=== PATIENT | male | born 1960 | race Caucasian/White ===

== ENCOUNTER 2017-05-23 12:59 | Inpatient (IN) | payer SELFPAY ==
[~2017-05-23] VITALS: Ht 188 cm; Wt 80.0 kg
[~2017-05-23 12:59] MED LIST: Z.0.NO CURRENT MEDS
[2017-05-23 13:09] VITALS: BP 172/81; PULSE 90; RESP 18; TEMP 98.3; O2SAT 97
[2017-05-23] MEDS ORDERED: SODIUM CHLOR 0.9% 1000 ML INJ 1,000 ML IV ONE ×2 (13:34)
[2017-05-23] MEDS ORDERED: VANCOMYCIN INJ 1,000 MG in SODIUM CHLOR 0.9% 250 ML INJ 250 ML IV STA (13:34)
[2017-05-23] MEDS ORDERED: SODIUM CHLOR 0.9% 1000 ML INJ 400 ML IV ONE (13:34)
[2017-05-23] MEDS ORDERED: PIPERACIL-TAZO 4.5 GM PREMIX 100 ML IV STA (13:34)
[2017-05-23] MEDS ORDERED: HYDROmorphone HCL PF 1 MG/ML VIAL IV ONE (13:45)
[2017-05-23] MEDS ORDERED: ONDANSETRON HCL 4 MG/2 ML VIAL IV ONE (13:45)
[2017-05-23] MEDS ORDERED: LIDOCAINE 2%/EPINEPHrine 1:100,000 30ML MDV INFIL ONE (14:00)
[2017-05-23] MEDS ORDERED: LIDOCAINE 2%/EPINEPHrine 1:100,000 50ML MDV ONE (14:10)
--- NOTE | 2017-05-23 14:28 | PD ---
HPI . Pain and swelling of the left elbow Chief Complaint: Skin Problem Time Seen by Provider: 13:33 Travel History International Travel<30 days: No Contact w/Intl Traveler<30days: No Traveled to known affect area: No History of Present Illness HPI This patient presents with a chief complaint of pain and swelling of his left elbow. Onset was a week ago. Symptoms are progressively worsening. He is now having difficulty moving his elbow secondary to the pain. He has had a subjective fever. Patient states that he had a "spider bite" a month ago and was treated at an outside hospital with antibiotics. He believes that his symptoms today are related to that "spider bite." PFSH Past Medical History Tetanus Vaccination: > 5 Years Past Surgical History Eye Surgery: Yes (L EYE REINSERTED) Social History Alcohol Use: Yes (6 BEERS DAILY) Tobacco Use: Yes (1PPD) Substance Use: No Allergies-Medications (Allergen,Severity, Reaction): Coded Allergies: penicillin G (Unverified Allergy, Unknown, UNKNOWN REACTION, 05/23/17) Reported Meds & Prescriptions Reported Meds & Active Scripts Active No Active Prescriptions or Reported Medications Review of Systems Except as stated in HPI: all other systems reviewed are Neg General / Constitutional: Positive: Fever, Chills Musculoskeletal: Positive: Limited ROM, Edema Skin: Positive Change in Pigmentation Physical Exam Narrative GENERAL: This is a thin, disheveled-appearing man who does not appear to be in any acute distress. SKIN: warm/dry. Marked edema and erythema of the olecranon bursa. There is some associated fluctuance. HEAD: Normocephalic. EYES: Pupils equal and round. No scleral icterus. No injection or drainage. ENT: No nasal bleeding or discharge. Mucous membranes pink and moist. NECK: Trachea midline. Full range of motion without pain.. CARDIOVASCULAR: Regular rate and rhythm. RESPIRATORY: No accessory muscle use. Clear to auscultation. Breath sounds equal bilaterally. MUSCULOSKELETAL: No obvious deformities. Diminished range of motion of the left elbow due to the swelling of the olecranon bursa. NEUROLOGICAL: Awake and alert. No obvious cranial nerve deficits. Motor grossly within normal limits. Normal speech. PSYCHIATRIC: Appropriate mood and affect; insight and judgment normal. Data Data Last Documented VS Vital Signs Date Time Temp Pulse Resp B/P (MAP) Pulse Ox O2 Delivery O2 Flow Rate FiO2 05/23/17 13:09 98.3 90 18 172/81 (111) 97 Orders Orders Basic Metabolic Panel (Bmp) (05/23/17 13:34) Complete Blood Count With Diff (05/23/17 13:34) Blood Culture (05/23/17 13:34) Wound Culture And Gram Stain (05/23/17 13:34) Iv Access Insert/Monitor (05/23/17 13:34) Lactic Acid Sepsis Protocol (05/23/17 13:34) Hydromorphone Pf Inj (Dilaudid Pf Inj) (05/23/17 13:45) Ondansetron Inj (Zofran Inj) (05/23/17 13:45) Piperacil-Tazo 4.5 Gm Premix (Zosyn 4.5 (05/23/17 13:34) Vancomycin Inj (Vancomycin Inj) (05/23/17 13:34) Sodium Chlor 0.9% 1000 Ml Inj (Ns 1000 M (05/23/17 13:34) Sodium Chlor 0.9% 1000 Ml Inj (Ns 1000 M (05/23/17 13:34) Sodium Chlor 0.9% 1000 Ml Inj (Ns 1000 M (05/23/17 13:34) Lidocai-Epi 2%-1:100,000 Inj (Xylocaine- (05/23/17 14:00) Lidocai-Epi 2%-1:100,000 Inj (Xylocaine- (05/23/17 14:10) Admit To Inpatient (05/23/17 ) Code Status (05/23/17 15:52) Vital Signs (Adult) Q4H (05/23/17 15:52) Activity Oob Ad Patricia (05/23/17 15:52) Intake + Output WILFRID.QSHIFT (05/23/17 15:52) Notify Dr: Other (05/23/17 15:52) Diet Regular Basic (05/23/17 Dinner) Sodium Chlor 0.9% 1000 Ml Inj (Ns 1000 M (05/23/17 15:52) Sodium Chloride 0.9% Flush (Ns Flush) (05/23/17 16:00) Sodium Chloride 0.9% Flush (Ns Flush) (05/23/17 21:00) Acetaminophen (Tylenol) (05/23/17 16:00) Ondansetron Inj (Zofran Inj) (05/23/17 16:00) Basic Metabolic Panel (Bmp) (05/24/17 06:00) Complete Blood Count With Diff (05/24/17 06:00) Urinalysis - C+S If Indicated (05/23/17 15:52) Enoxaparin Inj (Lovenox Inj) (05/23/17 16:00) Naloxone Inj (Narcan Inj) (05/23/17 16:00) Docusate Sodium-Senna (Rachel-Colace) (05/23/17 21:00) Magnesium Hydroxide Liq (Milk Of Magnesi (05/23/17 16:00) Sennosides (Senokot) (05/23/17 16:00) Bisacodyl Supp (Dulcolax Supp) (05/23/17 16:00) Lactulose Liq (Lactulose Liq) (05/23/17 16:00) Inpatient Certification (05/23/17 ) Vancomycin Consult Pharmacy (Vancomycin (05/23/17 16:00) Piperacil-Tazo 3.375 Gm Premix (Zosyn 3. (05/23/17 16:00) Admit Order (Ed Use Only) (05/23/17 15:53) Labs Laboratory Tests Test 05/23/17 13:45 White Blood Count 15.3 TH/MM3 Red Blood Count 3.84 MIL/MM3 Hemoglobin 12.1 GM/DL Hematocrit 35.9 % Mean Corpuscular Volume 93.6 FL Mean Corpuscular Hemoglobin 31.6 PG Mean Corpuscular Hemoglobin Concent 33.7 % Red Cell Distribution Width 14.4 % Platelet Count 494 TH/MM3 Mean Platelet Volume 7.9 FL Neutrophils (%) (Auto) 76.5 % Lymphocytes (%) (Auto) 15.4 % Monocytes (%) (Auto) 6.7 % Eosinophils (%) (Auto) 0.6 % Basophils (%) (Auto) 0.8 % Neutrophils # (Auto) 11.7 TH/MM3 Lymphocytes # (Auto) 2.4 TH/MM3 Monocytes # (Auto) 1.0 TH/MM3 Eosinophils # (Auto) 0.1 TH/MM3 Basophils # (Auto) 0.1 TH/MM3 CBC Comment DIFF FINAL Differential Comment Blood Urea Nitrogen 6 MG/DL Creatinine 0.61 MG/DL Random Glucose 86 MG/DL Calcium Level 8.5 MG/DL Sodium Level 134 MEQ/L Potassium Level 4.7 MEQ/L Chloride Level 102 MEQ/L Carbon Dioxide Level 20.4 MEQ/L Anion Gap 12 MEQ/L Estimat Glomerular Filtration Rate 136 ML/MIN Lactic Acid Level 1.2 mmol/L MDM Medical Decision Making Medical Screen Exam Complete: Yes Emergency Medical Condition: Yes Differential Diagnosis My differential diagnosis includes but is not limited to localized wound infection, cellulitis, abscess Narrative Course This patient presents with redness, warmth, swelling and tenderness of the left elbow. CBC & BMP Diagram 05/23/17 13:45 Calcium Level 8.5 Lactic acid level is normal. Procedures Procedure Narrative NEEDLE ASPIRATION OF BURSA: The left elbow was prepped with an alcohol swab. An 18-gauge needle and 10 cc syringe within use to aspirate the bursa or the purpose of culture. 10 cc of thick, purulent material was aspirated. INCISION AND DRAINAGE OF ABSCESS: The area was prepped and was sterilely draped. A subcutaneous wheal of 2 % Xylocaine with epi with a total number for mL was used to anesthetize the area properly. A number 11 scalpel was used to make a 1-cm incision across the area of the abscess. The abscess was drained. Cultures were obtained. Half inch iodoform packing was placed in the wound. Sterile dressing applied. Diagnosis Primary Impression: Septic olecranon bursitis of left elbow Admitting Information Admitting Physician Requests: Admit Scripts No Active Prescriptions or Reported Meds Condition: Stable Marianne Agee MD May 23, 2017 14:28
[2017-05-23 14:29] LABS: AUTOMATED NEUTROPHIL # 11.7 TH/MM3 (1.8-7.7); BASOPHIL # 0.1 TH/MM3 (0-0.2); BASOPHIL % 0.8 % (0.0-2.0); EOSINOPHIL # 0.1 TH/MM3 (0-0.4); EOSINOPHIL % 0.6 % (0.0-4.0); HEMATOCRIT 35.9 % (39.0-51.0); HEMO FLAGS DIFF FINAL; LYMPH % 15.4 % (9.0-44.0); LYMPHOCYTE # 2.4 TH/MM3 (1.0-4.8); MEAN CELL VOLUME 93.6 FL (80.0-100.0); MEAN CORPUSCULAR HEMOGLOBIN 31.6 PG (27.0-34.0); MEAN CORPUSCULAR HGB CONC 33.7 % (32.0-36.0); MONO % 6.7 % (0.0-8.0); NEUT % 76.5 % (16.0-70.0); PLATELET COUNT 494 TH/MM3 (150-450); RED BLOOD COUNT 3.84 MIL/MM3 (4.50-5.90); RED CELL DISTRIBUTION WIDTH 14.4 % (11.6-17.2); WHITE BLOOD COUNT 15.3 TH/MM3 (4.0-11.0)
[2017-05-23 15:00] LABS: BICARBONATE 20.4 MEQ/L (21.0-32.0)
[2017-05-23 15:01] LABS: POTASSIUM 4.7 MEQ/L (3.5-5.1)
[2017-05-23] MEDS ORDERED: SODIUM CHLOR 0.9% 1000 ML INJ 1,000 ML IV SCH (15:52)
--- NOTE | 2017-05-23 15:54 | HHI.HP ---
HPI Service [facility] Primary Care Physician No Primary Care Physician Admission Diagnosis Diagnoses: Chief Complaint: Left Elbow inflamation Travel History International Travel<30 Days: No Contact w/Intl Traveler <30 Da: No Traveled to Known Affected Are: No History of Present Illness This is a pleasant 56 y/o male who came to ER with swelling of his left elbow. onset one week ago, progressively worsening, He is now having difficulty moving his elbow secondary to the pain. He has had a subjective fever. he states his real pathology started four weeks ago and was seen at [facility] and started on antibiotics failed outpatient management and came here for evaluation today and was found abscess on his left elbow status post I and D in ER. Review of Systems Constitutional: DENIES: Fever, Chills, Change in appetite Endocrine: DENIES: Heat/cold intolerance Eyes: DENIES: Blurred vision, Eye pain Musculoskeletal: COMPLAINS OF: Joint pain Except as stated in HPI: all other systems reviewed are Neg Past Family Social History Past Medical History Denies. Past Surgical History Left eye reinserted after trauma Left Femur surgery Reported Medications Reported Meds & Active Scripts Active No Active Prescriptions or Reported Medications Allergies: Coded Allergies: penicillin G (Unverified Allergy, Unknown, UNKNOWN REACTION, 05/23/17) Active Ordered Medications Current Medications Medications (Trade) Dose Ordered Sig/Jn Route Start Time Stop Time Status Last Admin Sodium Chloride 1,000 ml @ 100 mls/hr Q10H IV 05/23/17 15:52 UNV (NS Flush) 2 ml UNSCH PRN IV FLUSH 05/23/17 16:00 UNV (NS Flush) 2 ml BID IV FLUSH 05/23/17 21:00 UNV (Tylenol) 650 mg Q4H PRN PO 05/23/17 16:00 UNV (Zofran Inj) 4 mg Q6H PRN IVP 05/23/17 16:00 UNV (Lovenox Inj) 40 mg Q24H SQ 05/23/17 16:00 UNV (Narcan Inj) 0.4 mg UNSCH PRN IV 05/23/17 16:00 UNV (Rachel-Colace) 1 tab BID PO 05/23/17 21:00 UNV (Milk Of Magnesia Liq) 30 ml Q12H PRN PO 05/23/17 16:00 UNV (Senokot) 17.2 mg Q12H PRN PO 05/23/17 16:00 UNV (Dulcolax Supp) 10 mg DAILY PRN RECTAL 05/23/17 16:00 UNV (Lactulose Liq) 30 ml DAILY PRN PO 05/23/17 16:00 UNV Pharmacy Profile Note 0 ml @ 0 mls/hr UNSCH OTHER 05/23/17 16:00 UNV Piperacillin Sod/ Tazobactam Sod 50 ml @ 100 mls/hr Q6H IV 05/23/17 16:00 UNV Family History Asked and denied. Social History Lives by himself. alcohol abuse 6 beers daily tobacco dependence one pack daily Physical Exam Vital Signs Vital Signs Date Time Temp Pulse Resp B/P (MAP) Pulse Ox O2 Delivery O2 Flow Rate FiO2 05/23/17 13:09 98.3 90 18 172/81 (111) 97 Physical Exam GENERAL: This is a thin, disheveled-appearing man who does not appear to be in any acute distress. SKIN: warm/dry. Marked edema and erythema of the olecranon bursa. There is some associated fluctuance. HEAD: Normocephalic. EYES: Pupils equal and round. No scleral icterus. No injection or drainage. ENT: No nasal bleeding or discharge. Mucous membranes pink and moist. NECK: Trachea midline. Full range of motion without pain.. CARDIOVASCULAR: Regular rate and rhythm. RESPIRATORY: No accessory muscle use. Clear to auscultation. Breath sounds equal bilaterally. MUSCULOSKELETAL: No obvious deformities. Diminished range of motion of the left elbow due to the swelling of the olecranon bursa. NEUROLOGICAL: Awake and alert. No obvious cranial nerve deficits. Motor grossly within normal limits. Normal speech. PSYCHIATRIC: Appropriate mood and affect; insight and judgment normal. Laboratory Laboratory Tests Test 05/23/17 13:45 White Blood Count 15.3 Red Blood Count 3.84 Hemoglobin 12.1 Hematocrit 35.9 Mean Corpuscular Volume 93.6 Mean Corpuscular Hemoglobin 31.6 Mean Corpuscular Hemoglobin Concent 33.7 Red Cell Distribution Width 14.4 Platelet Count 494 Mean Platelet Volume 7.9 Neutrophils (%) (Auto) 76.5 Lymphocytes (%) (Auto) 15.4 Monocytes (%) (Auto) 6.7 Eosinophils (%) (Auto) 0.6 Basophils (%) (Auto) 0.8 Neutrophils # (Auto) 11.7 Lymphocytes # (Auto) 2.4 Monocytes # (Auto) 1.0 Eosinophils # (Auto) 0.1 Basophils # (Auto) 0.1 CBC Comment DIFF FINAL Differential Comment Blood Urea Nitrogen 6 Creatinine 0.61 Random Glucose 86 Calcium Level 8.5 Sodium Level 134 Potassium Level 4.7 Chloride Level 102 Carbon Dioxide Level 20.4 Anion Gap 12 Estimat Glomerular Filtration Rate 136 Lactic Acid Level 1.2 Date/Time Source Procedure Growth Status 05/23/17 13:45 Blood Peripheral Aerobic Blood Culture Pending Received 05/23/17 13:45 Blood Peripheral Anaerobic Blood Culture Pending Received 05/23/17 13:45 Wound Elbow Gram Stain Pending Received 05/23/17 13:45 Wound Elbow Wound Culture Pending Received Result Diagram: 05/23/17 1345 05/23/17 1345 Imaging No imaging studies performed. Caprini VTE Risk Assessment Caprini VTE Risk Assessment: No/Low Risk (score <= 1) Caprini Risk Assessment Model Point Value = 1 Point Value = 2 Point Value = 3 Point Value = 5 Age 41-60 Minor surgery BMI > 25 kg/m2 Swollen legs Varicose veins or History of unexplained or recurrent spontaneous Oral contraceptives or hormone replacement Sepsis (< 1 month) Serious lung disease, including pneumonia (< 1 month) Abnormal pulmonary function Acute myocardial infarction Congestive heart failure (< 1 month) History of inflammatory bowel disease Medical patient at bed rest Age 61-74 Arthroscopic surgery Major open surgery (> 45 min) Laparoscopic surgery (> 45 min) Malignancy Confined to bed (> 72 hours) Immobilizing plaster cast Central venous access Age >= 75 History of VTE Family history of VTE Factor V Leiden Prothrombin [id number] Lupus anticoagulant Anticardiolipin antibodies Elevated serum homocysteine Heparin-induced thrombocytopenia Other congenital or acquired thrombophilia Stroke (< 1 month) Elective arthroplasty Hip, pelvis, or leg fracture Acute spinal cord injury (< 1 month) Prophylaxis Regimen Total Risk Factor Score Risk Level Prophylaxis Regimen 0-1 Low Early ambulation 2 Moderate Order ONE of the following: *Sequential Compression Device (SCD) *Heparin 5000 units SQ BID 3-4 Higher Order ONE of the following medications: *Heparin 5000 units SQ TID *Enoxaparin/Lovenox 40 mg SQ daily (WT < 150 kg, CrCl > 30 mL/min) *Enoxaparin/Lovenox 30 mg SQ daily (WT < 150 kg, CrCl > 10-29 mL/min) *Enoxaparin/Lovenox 30 mg SQ BID (WT < 150 kg, CrCl > 30 mL/min) AND/OR *Sequential Compression Device (SCD) 5 or more Highest Order ONE of the following medications: *Heparin 5000 units SQ TID (Preferred with Epidurals) *Enoxaparin/Lovenox 40 mg SQ daily (WT < 150 kg, CrCl > 30 mL/min) *Enoxaparin/Lovenox 30 mg SQ daily (WT < 150 kg, CrCl > 10-29 mL/min) *Enoxaparin/Lovenox 30 mg SQ BID (WT < 150 kg, CrCl > 30 mL/min) AND *Sequential Compression Device (SCD) Assessment and Plan Assessment and Plan 1. Abscess of the left elbow, status post Incision and drainage of abscess in Emergency room. with Diagnosis of Septic Olecranon bursitis of the left elbow started on Vancomycin and Zosyn. will continue present medicines and follow hospitalized blood cultures and wound culture, De escalate medicines depend of clinical course. 2. Tobacco dependence strongly recommended to stop smoking refused Nicotine replacement 3. Alcohol abuse strongly recommended to stop drinking alcohol CIWA protocol started. DVT prophylaxis with Lovenox. Code Status Full code. Discussed Condition With Patient and ER physician Marianne Sutherland MD Physician Certification 2 Midnight Certification Type: Admission for Inpatient Services Order for Inpatient Services The services are ordered in accordance with Medicare regulations or non- Medicare payer requirements, as applicable. In the case of services not specified as inpatient-only, they are appropriately provided as inpatient services in accordance with the 2-midnight benchmark. Estimated LOS (days): 3 days is the estimated time the patient will need to remain in the hospital, assuming treatment plan goals are met and no additional complications. Post-Hospital Plan: Home Jesus Alberto Weaver MD May 23, 2017 15:54
[2017-05-23] MEDS ORDERED: ENOXAPARIN SODIUM 40 MG/0.4 ML SYRINGE SQ SCH (16:00)
[2017-05-23] MEDS ORDERED: ONDANSETRON HCL 4 MG/2 ML VIAL IVP PRN (16:00)
[2017-05-23] MEDS ORDERED: LACTULOSE SYRUP 20 GM/30 ML CUP PO PRN (16:00)
[2017-05-23] MEDS ORDERED: Vancomycin Consult Pharmacy 1 EA OTHER SCH (16:00)
[2017-05-23] MEDS ORDERED: ACETAMINOPHEN 325 MG TAB PO PRN (16:00)
[2017-05-23] MEDS ORDERED: NALOXONE HCL 0.4 MG/ML AMP IV PRN (16:00)
[2017-05-23] MEDS ORDERED: BISACODYL 10 MG SUPP RECTAL PRN (16:00)
[2017-05-23] MEDS ORDERED: SENNOSIDES 8.6 MG TAB PO PRN (16:00)
[2017-05-23] MEDS ORDERED: MAGNESIUM HYDROXIDE SUSP 30 ML CUP PO PRN (16:00)
[2017-05-23] MEDS ORDERED: SODIUM CHLORIDE 0.9% FLUSH 10 ML FLUSH IV FLUSH PRN (16:00)
[2017-05-23] MEDS ORDERED: FLUMAZENIL 0.5 MG/5 ML VIAL IV PUSH PRN (16:15)
[2017-05-23] MEDS ORDERED: LORazepam 2 MG TAB PO PRN (16:15)
[2017-05-23] MEDS ORDERED: LORazepam 2 MG/ML VIAL IV PUSH PRN ×4 (16:15)
[2017-05-23] MEDS ORDERED: LORazepam 1 MG TAB PO PRN (16:15)
[2017-05-23] MEDS ORDERED: THIAMINE INJ 100 MG in SODIUM CHLORIDE 0.9% INJ 100 ML IV SCH (17:00)
--- NOTE | 2017-05-23 17:23 | HHI.DS ---
Discharge Summary Admission Date May 23, 2017 at 15:57 Discharge Date: May 23, 2017 Admitting Diagnosis (1) Abscess of bursa of left elbow ICD Code: M71.022 - Abscess of bursa, left elbow Diagnosis: Principal Procedures I and D of the left Elbow Abscess Brief History - From Admission This is a pleasant 56 y/o male who came to ER with swelling of his left elbow. onset one week ago, progressively worsening, He is now having difficulty moving his elbow secondary to the pain. He has had a subjective fever. he states his real pathology started four weeks ago and was seen at [facility] and started on antibiotics failed outpatient management and came here for evaluation today and was found abscess on his left elbow status post I and D in ER. CBC/BMP: 05/23/17 1345 05/23/17 1345 Significant Findings Laboratory Tests Test 05/23/17 13:45 White Blood Count 15.3 TH/MM3 (4.0-11.0) Red Blood Count 3.84 MIL/MM3 (4.50-5.90) Hemoglobin 12.1 GM/DL (13.0-17.0) Hematocrit 35.9 % (39.0-51.0) Platelet Count 494 TH/MM3 (150-450) Neutrophils (%) (Auto) 76.5 % (16.0-70.0) Neutrophils # (Auto) 11.7 TH/MM3 (1.8-7.7) Monocytes # (Auto) 1.0 TH/MM3 (0-0.9) Blood Urea Nitrogen 6 MG/DL (7-18) Sodium Level 134 MEQ/L (136-145) Carbon Dioxide Level 20.4 MEQ/L (21.0-32.0) Imaging NO IMAGING STUDIES PERFORMED. PE at Discharge THE PATIENT DECIDED TO SIGN AGAINST MEDICAL ADVISE. AND LEFT THE HOSPITAL PROBABLE CONSEQUENCES FROM HIS DECISION WERE DISCUSSED BY ER PERSONNEL WITH THE PATIENT. Hospital Course This is a pleasant 56 y/o male who came to ER with swelling of his left elbow. onset one week ago, progressively worsening, He is now having difficulty moving his elbow secondary to the pain. He has had a subjective fever. he states his real pathology started four weeks ago and was seen at [facility] and started on antibiotics failed outpatient management and came here for evaluation today and was found abscess on his left elbow status post I and D in ER. Assessment and Plan 1. Abscess of the left elbow, status post Incision and drainage of abscess in Emergency room. with Diagnosis of Septic Olecranon bursitis of the left elbow started on Vancomycin and Zosyn. will continue present medicines and follow hospitalized blood cultures and wound culture, De escalate medicines depend of clinical course. 2. Tobacco dependence strongly recommended to stop smoking refused Nicotine replacement 3. Alcohol abuse strongly recommended to stop drinking alcohol CIWA protocol started. DVT prophylaxis with Lovenox. Code Status Full code. THE PATIENT DECIDED TO SIGN AGAINST MEDICAL ADVISE. AND LEFT THE HOSPITAL PROBABLE CONSEQUENCES FROM HIS DECISION WERE DISCUSSED BY ER PERSONNEL WITH THE PATIENT. Pt Condition on Discharge: Deteriorating Discharge Disposition: Discharge Home Discharge Time: <= 30 minutes Jesus Alberto Weaver MD May 23, 2017 17:23
[2017-05-23] MEDS ORDERED: MULTIVITAMIN INJ 10 ML, FOLIC ACID INJ 1 MG in SODIUM CHLORID 0.9% 500 ML INJ 500 ML IV SCH (18:00)
[2017-05-23 19:53] LABS: FREE T4 1.05 NG/DL (0.76-1.46); HDL CHOLESTEROL 42.2 MG/DL (40.0-60.0); LDL CHOLESTEROL 59 MG/DL (0-99)
[2017-05-23] MEDS ORDERED: PIPERACIL-TAZO 3.375 GM PREMIX 50 ML IV SCH (20:00)
[2017-05-23] MEDS ORDERED: SODIUM CHLORIDE 0.9% FLUSH 10 ML FLUSH IV FLUSH SCH (21:00)
[2017-05-23] MEDS ORDERED: DOCUSATE SODIUM 50 MG/SENNA 8.6 MG TAB PO SCH (21:00)
[2017-05-24 12:40] LABS: HEMOGLOBIN A1a 1.4 %; HEMOGLOBIN A1b 1.6 %; HEMOGLOBIN Ao 84.8 %; HEMOGLOBIN F 0.2 %; HEMOGLOBIN LA1C 1.7 %; HEMOGLOBIN P3 3.7 %
[2017-05-24] MEDS ORDERED: NORC5TAB PO (15:08)
[2017-05-24] MEDS ORDERED: BACT800T5 PO (15:08)
[2017-05-26] MEDS ORDERED: THIAMINE HCL 100 MG TAB PO SCH (09:00)
== END 2017-05-23 16:24 | disposition left against medical advice (07) | DRG 508 ==
LOC: NEPE 12:59 → NEDA 15:57
PROVIDERS: ADMIT Internal Medicine; ATTEND Internal Medicine
PROC: 0R9M00Z Drainage of Left Elbow Joint with Drainage Device, Open Approach (ICD-10-PCS; principal; 2017-05-23)
DX: M71.022 Abscess of bursa, left elbow (principal); F10.10 Alcohol abuse, uncomplicated; T63.301A Toxic effect of unspecified spider venom, accidental (unintentional), initial encounter; F17.200 Nicotine dependence, unspecified, uncomplicated
CPT/HCPCS: 10061; 20605; 80048; 80061; 82607; 82746; 83036; 83605; 84439; 84443; 85025; 87040; 87070; 87205; 96361; 96365; 96375; J1170; J2405; J2543; J3370; J7030; J7050

== ENCOUNTER 2017-05-24 14:06 | Emergency (ER) | payer SELFPAY ==
[2017-05-24 14:07] VITALS: BP 128/75; PULSE 80; RESP 16; TEMP 98.4; O2SAT 98
[2017-05-24 14:25] VITALS: BP 144/81; PULSE 77; RESP 16; O2SAT 99
[2017-05-24] MEDS ORDERED: VANCOMYCIN INJ 1,000 MG in SODIUM CHLOR 0.9% 250 ML INJ 250 ML IV ONE (14:30)
--- NOTE | 2017-05-24 14:35 | PD ---
HPI . Skin infection Chief Complaint: Skin Problem Time Seen by Provider: 14:25 Travel History International Travel<30 days: No Contact w/Intl Traveler<30days: No Traveled to known affect area: No History of Present Illness HPI This patient was seen here yesterday for septic bursitis of the left elbow. He was treated with vancomycin and Zosyn. His WBC yesterday was 15.3. LA was 1.2. Blood and wound cultures are neg thus far. Arrangements were made for him to be admitted to the hospital yesterday. However, he states that he had to go move his things out of the motel room. He left AMA. He was not given any antibiotics prior to leaving. He returns today noting that he had to use his arm a lot yesterday and today to move his things. He is complaining with increased pain in his left forearm. He is also complaining with redness and swelling. He has not been running a fever. In triage, he rated his pain 5/10. He now rates his pain 9/10. Pain is exacerbated by moving. FOR[facility]LY [facility], [facility] Past Medical History Medical History: Denies Significant Hx Influenza Vaccination: No Past Surgical History Eye Surgery: Yes (L EYE REINSERTED) Social History Alcohol Use: Yes (6 BEERS DAILY) Tobacco Use: Yes (1PPD) Substance Use: No Allergies-Medications (Allergen,Severity, Reaction): Coded Allergies: penicillin G (Unverified Allergy, Unknown, UNKNOWN REACTION, 05/24/17) Reported Meds & Prescriptions Reported Meds & Active Scripts Active No Active Prescriptions or Reported Medications Review of Systems Except as stated in HPI: all other systems reviewed are Neg General / Constitutional: No: Fever, Chills Musculoskeletal: Positive: Edema, Pain Skin: Positive Change in Pigmentation Physical Exam Narrative GENERAL: Awake and alert and in no acute distress. SKIN: Warm and dry. Redness and warmth of the left forearm. The I&D looks good. The redness and swelling of the left olecranon is markedly improved. HEAD: Atraumatic. Normocephalic. EYES: Pupils equal and round. NECK: Trachea midline. CARDIOVASCULAR: Regular rate and rhythm. RESPIRATORY: No accessory muscle use. MUSCULOSKELETAL: No obvious deformities. No edema. NEUROLOGICAL: Awake and alert. No obvious cranial nerve deficits. Motor grossly within normal limits. Normal speech. PSYCHIATRIC: Appropriate mood and affect; insight and judgment normal. Data Data Last Documented VS Vital Signs Date Time Temp Pulse Resp B/P (MAP) Pulse Ox O2 Delivery O2 Flow Rate FiO2 05/24/17 14:25 77 16 144/81 (102) 99 Room Air 05/24/17 14:07 98.4 Orders Orders Complete Blood Count With Diff (05/24/17 14:26) Vancomycin Inj (Vancomycin Inj) (05/24/17 14:30) Morphine Inj (Morphine Inj) (05/24/17 14:45) Ondansetron Inj (Zofran Inj) (05/24/17 14:45) Labs Laboratory Tests Test 05/24/17 14:55 White Blood Count 13.0 TH/MM3 Red Blood Count 3.71 MIL/MM3 Hemoglobin 11.5 GM/DL Hematocrit 34.3 % Mean Corpuscular Volume 92.5 FL Mean Corpuscular Hemoglobin 31.0 PG Mean Corpuscular Hemoglobin Concent 33.5 % Red Cell Distribution Width 14.2 % Platelet Count 552 TH/MM3 Mean Platelet Volume 6.9 FL Neutrophils (%) (Auto) 74.9 % Lymphocytes (%) (Auto) 17.6 % Monocytes (%) (Auto) 6.0 % Eosinophils (%) (Auto) 0.7 % Basophils (%) (Auto) 0.8 % Neutrophils # (Auto) 9.7 TH/MM3 Lymphocytes # (Auto) 2.3 TH/MM3 Monocytes # (Auto) 0.8 TH/MM3 Eosinophils # (Auto) 0.1 TH/MM3 Basophils # (Auto) 0.1 TH/MM3 CBC Comment DIFF FINAL Differential Comment MDM Medical Decision Making Medical Screen Exam Complete: Yes Emergency Medical Condition: Yes Medical Record Reviewed: Yes (please see the history of present illness for pertinent findings were on review of records) Differential Diagnosis My differential diagnosis includes but is not limited to localized wound infection, cellulitis, abscess Narrative Course This patient is here for follow-up of septic olecranon bursitis. His blood and wound cultures are negative thus far. I will recheck his white blood count. I will give him another dose of vancomycin. I anticipate that I will be able to discharge home today on oral antibiotics. CBC Diagram 05/24/17 14:55 This patient is clinically improved. His white blood count is decreased from yesterday. He will be discharged home on oral antibiotics. I will use Bactrim. He is to return tomorrow for wound check and packing removal. Diagnosis Primary Impression: Abscess of bursa of left elbow Patient Instructions: Abscess Incision and Drainage (DC), General Instructions , Narcotic given in the ED Med/Other Pt SpecificInfo: Prescription(s) given Scripts Hydrocodone-Acetaminophen (Rose) 5-325 mg Tab 1 TAB PO Q4H Y for PAIN, #12 TAB 0 Refills Prov: Marianne Agee MD 05/24/17 Sulfamethoxazole-Trimethoprim (Bactrim DS) 800-160 Mg Tab 1 TAB PO BID for Infection, #20 TAB 0 Refills Prov: Marianne Agee MD 05/24/17 Disposition: 01 DISCHARGE HOME Condition: Stable Marianne Agee MD May 24, 2017 14:35
[2017-05-24] MEDS ORDERED: MORPHINE SULFATE 4 MG/ML INJ IV PUSH ONE (14:45)
[2017-05-24] MEDS ORDERED: ONDANSETRON HCL 4 MG/2 ML VIAL IV PUSH ONE (14:45)
[2017-05-24 15:04] LABS: AUTOMATED NEUTROPHIL # 9.7 TH/MM3 (1.8-7.7); BASOPHIL # 0.1 TH/MM3 (0-0.2); BASOPHIL % 0.8 % (0.0-2.0); EOSINOPHIL # 0.1 TH/MM3 (0-0.4); EOSINOPHIL % 0.7 % (0.0-4.0); HEMATOCRIT 34.3 % (39.0-51.0); HEMO FLAGS DIFF FINAL; LYMPH % 17.6 % (9.0-44.0); LYMPHOCYTE # 2.3 TH/MM3 (1.0-4.8); MEAN CELL VOLUME 92.5 FL (80.0-100.0); MEAN CORPUSCULAR HGB CONC 33.5 % (32.0-36.0); NEUT % 74.9 % (16.0-70.0); PLATELET COUNT 552 TH/MM3 (150-450); RED BLOOD COUNT 3.71 MIL/MM3 (4.50-5.90); RED CELL DISTRIBUTION WIDTH 14.2 % (11.6-17.2)
[2017-05-24] MEDS ORDERED: NORC5TAB PO (15:08)
[2017-05-24] MEDS ORDERED: BACT800T5 PO (15:08)
== END 2017-05-24 16:26 | disposition home or self-care (01) ==
LOC: NEPC 14:06
DX: L02.414 Cutaneous abscess of left upper limb (principal); Z72.0 Tobacco use; Z88.0 Allergy status to penicillin
CPT/HCPCS: 85025; 96365; 96366; 96375; 99284; J2270; J2405; J3370; J7050

== ENCOUNTER 2017-05-25 13:47 | Emergency (ER) | payer SELFPAY ==
[~2017-05-25] VITALS: Ht 188 cm; Wt 84.0 kg
[~2017-05-25 13:47] MED LIST changes: +BACT800T5 PO; +NORC5TAB PO; -Z.0.NO CURRENT MEDS
[2017-05-25 13:49] VITALS: BP 120/80; PULSE 78; RESP 20; TEMP 98; O2SAT 98
[2017-05-25] MEDS ORDERED: VANCOMYCIN INJ 1,000 MG in SODIUM CHLOR 0.9% 250 ML INJ 250 ML IV ONE (14:45)
[2017-05-25] MEDS ORDERED: MORPHINE SULFATE 4 MG/ML INJ IV PUSH ONE (14:45)
[2017-05-25] MEDS ORDERED: PIPERACIL-TAZO 3.375 GM PREMIX 50 ML IV ONE (14:45)
--- NOTE | 2017-05-25 14:48 | PD ---
HPI . Recheck Chief Complaint: Skin Problem Time Seen by Provider: 14:27 Travel History International Travel<30 days: No Contact w/Intl Traveler<30days: No Traveled to known affect area: No History of Present Illness HPI This patient is here for the third day for recheck of left septic olecranon bursitis. I have seen the patient the past 2 days. He was I&Ded on the first day. Arrangements were made for admission but the patient left AMA. He presented back yesterday for recheck and possible admission. His wound looked much better yesterday. WBC was rechecked and was decreasing. Cultures were negative to date. He was given an additional dose of IV antibiotics and was discharged to home with instructions to return today for routine recheck and removal of the packing. The patient admits that he has been unable to have his prescriptions filled because of financial reasons. He continues to complain with pain especially distal to I&D. He rates his pain currently as 9/10 and states that the pain is exacerbated by movement. PFSH Past Surgical History Eye Surgery: Yes (L EYE REINSERTED) Social History Alcohol Use: Yes (6 BEERS DAILY) Tobacco Use: Yes (1PPD) Substance Use: No Allergies-Medications (Allergen,Severity, Reaction): Coded Allergies: penicillin G (Unverified Adverse Reaction, Unknown, UNKNOWN REACTION, ) Reported Meds & Prescriptions Reported Meds & Active Scripts Active [place] (Hydrocodone-Acetaminophen) 5-325 mg Tab 1 Tab PO Q4H PRN Bactrim DS (Sulfamethoxazole-Trimethoprim) 800-160 Mg Tab 1 Tab PO BID Review of Systems Except as stated in HPI: all other systems reviewed are Neg General / Constitutional: No: Fever, Chills Musculoskeletal: Positive: Edema, Pain Skin: Positive Change in Pigmentation Physical Exam Narrative GENERAL: The patient is a pleasant, disheveled-appearing man who looks about the same today as he has the past 2 days. SKIN: He has a wound on the medial aspect of the left elbow. The packing came out when I removed the dressing. There is minimal residual drainage. The surrounding skin skin color is markedly improved. It now has a lei but not bright red. It is not warm to the touch. It is not swollen. He does have some redness and swelling distally. However, his dressing around his elbow was pretty tight. HEAD: Normocephalic/atraumatic. EYES: Pupils equal. Extraocular movements intact. NECK: Full range of motion with no apparent pain. RESPIRATORY: Nonlabored respirations. MUSCULOSKELETAL: Full range of motion of the left elbow. NEUROLOGICAL: No localizing signs. PSYCHIATRIC: Normal mood and affect. Data Data Last Documented VS Vital Signs Date Time Temp Pulse Resp B/P (MAP) Pulse Ox O2 Delivery O2 Flow Rate FiO2 05/25/17 13:49 98.0 78 20 120/80 (93) 98 Room Air Orders Orders ^ Saline Lock (05/25/17 14:32) Piperacil-Tazo 3.375 Gm Premix (Zosyn 3. (05/25/17 14:45) Vancomycin Inj (Vancomycin Inj) (05/25/17 14:45) Morphine Inj (Morphine Inj) (05/25/17 14:45) MDM Medical Decision Making Medical Screen Exam Complete: Yes Emergency Medical Condition: Yes Medical Record Reviewed: Yes (his blood and wound cultures remain negative.) Differential Diagnosis My differential diagnosis includes but is not limited to localized wound infection, cellulitis, abscess Narrative Course This patient presents for follow-up of septic olecranon bursitis of the left elbow. Blood and wound cultures are negative. He has been receiving IV vancomycin and Zosyn here daily. He has not yet started any oral antibiotics. At this point, antibiotics are probably not needed. The I&D probably cure the problem. I will go ahead and give him an additional dose of IV antibiotics here now. I will then discharge him to home with routine wound care. I will tell him that it is not imperative that he take the antibiotic that was previously prescribed. He should return if he has any worsening of his symptoms increasing pain, swelling, redness, fever, drainage. Diagnosis Primary Impression: Abscess of bursa of left elbow Additional Instructions: Wash the wound twice daily with antibacterial soap and water. Dress as needed to prevent drainage from getting on her clothing. Return here for increasing pain, increasing redness, increasing warmth, fever. You do not need to take the antibiotics now. Disposition: 01 DISCHARGE HOME Condition: Stable Marianne Agee MD May 25, 2017 14:48
[2017-05-25 15:09] VITALS: BP 128/78; PULSE 80; RESP 14; O2SAT 100
[2017-05-25 15:28] VITALS: RESP 16
[2017-05-25 17:33] VITALS: BP 137/80
== END 2017-05-25 17:36 | disposition home or self-care (01) ==
LOC: NEPD 13:47
DX: M70.22 Olecranon bursitis, left elbow (principal)
CPT/HCPCS: 96365; 96368; 96375; 99284; J2270; J2543; J3370; J7050

== ENCOUNTER 2017-10-26 15:09 | Emergency (ER) | payer SELFPAY ==
[2017-10-26 15:10] VITALS: BP 133/86; PULSE 106; RESP 16; TEMP 98.2; O2SAT 98
--- NOTE | 2017-10-26 15:51 | RADRPT ---
EXAM DATE/TIME: 10/26/2017 15:40 [facility] COMPARISON: No previous studies available for comparison. INDICATIONS : Right hand, 2nd digit inflammation after cat scratch. MEDICAL HISTORY : None. SURGICAL HISTORY : None. ENCOUNTER: Initial ACUITY: 1 week PAIN SCORE: 8/10 LOCATION: Right hand, 2nd digit. FINDINGS: Soft tissue swelling, no radiopaque foreign bodies. CONCLUSION: Soft tissue swelling otherwise negative Deven Higuera MD FACR on October 26, 2017 at 15:49 Board Certified Radiologist. This report was verified electronically.
[2017-10-26] MEDS ORDERED: CLINDAMYCIN INJ 900 MG in SODIUM CHLORIDE 0.9% INJ 100 ML IV ONE (17:15)
[2017-10-26] MEDS ORDERED: LEVOFLOXACIN 500 MG PREMIX INJ 100 ML IV ONE (17:15)
--- NOTE | 2017-10-26 17:16 | PD ---
HPI Chief Complaint: Skin Problem Time Seen by Provider: 17:01 Travel History International Travel<30 days: No Contact w/Intl Traveler<30days: No Traveled to known affect area: No History of Present Illness HPI States that he has no major past medical history of surgical history except for some orthopedic surgeries which he has had in the past. Patient comes in about a week after a kitten scratched his right index finger on the dorsal aspect of the hand and the radial aspect of his left wrist. Patient states that he did not seek out any care he just went ahead and use a combination of bleach so and I eventually some hydrogen peroxide to try and clean that area of his hands and wrists which did not seem to improve or resolve his redness and swelling. 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 patient states that he has allergies to penicillin, causes a rash. PFSH Past Surgical History Eye Surgery: Yes (L EYE REINSERTED) Social History Alcohol Use: Yes Tobacco Use: Yes Substance Use: No Allergies-Medications (Allergen,Severity, Reaction): Coded Allergies: penicillin G (Verified Adverse Reaction, Unknown, UNKNOWN REACTION, 05/25/17 ) Reported Meds & Prescriptions Reported Meds & Active Scripts Active [place] (Hydrocodone-Acetaminophen) 5-325 mg Tab 1 Tab PO Q4H PRN Bactrim DS (Sulfamethoxazole-Trimethoprim) 800-160 Mg Tab 1 Tab PO BID Review of Systems General / Constitutional: No: Fever Eyes: No: Visual changes HENT: No: Headaches Cardiovascular: No: Chest Pain or Discomfort Respiratory: No: Shortness of Breath Gastrointestinal: No: Abdominal Pain Genitourinary: No: Dysuria Musculoskeletal: No: Pain Skin: Positive Other (Redness and swelling to his right index finger) Neurologic: No: Weakness Psychiatric: No: Depression Endocrine: No: Polydipsia Hematologic/Lymphatic: No: Easy Bruising Physical Exam Narrative GENERAL: SKIN: Warm and dry. HEAD: Atraumatic. Normocephalic. EYES: Pupils equal and round. No scleral icterus. No injection or drainage. ENT: No nasal bleeding or discharge. Mucous membranes pink and moist. NECK: Trachea midline. No JVD. CARDIOVASCULAR: Regular rate and rhythm. RESPIRATORY: No accessory muscle use. Clear to auscultation. Breath sounds equal bilaterally. GASTROINTESTINAL: Abdomen soft, non-tender, nondistended. Hepatic and splenic margins not palpable. MUSCULOSKELETAL: Extremities without clubbing, cyanosis, or edema. No obvious deformities. NEUROLOGICAL: Awake and alert. No obvious cranial nerve deficits. Motor grossly within normal limits. Five out of 5 muscle strength in the arms and legs. Normal speech. PSYCHIATRIC: Appropriate mood and affect; insight and judgment normal. Exam Hand 1 - Erythema (edema, erythema, induration, without fluctuance over area marked) 2 - Erythema (indurated area without fluctuance, some early streaking noted on left wrist as well as on right index finger) Data Data Last Documented VS Vital Signs Date Time Temp Pulse Resp B/P (MAP) Pulse Ox O2 Delivery O2 Flow Rate FiO2 10/26/17 15:10 98.2 106 16 133/86 (102) 98 Orders Orders Finger ([id number]) (10/26/17 ) Complete Blood Count With Diff (10/26/17 15:29) Basic Metabolic Panel (Bmp) (10/26/17 15:29) Blood Culture (10/26/17 17:01) Levofloxacin 500 Mg Premix Inj (Levaquin (10/26/17 17:15) Clindamycin Inj (Cleocin Inj) (10/26/17 17:15) Mandatory Outpatient Referral (10/26/17 17:14) Labs Laboratory Tests Test 10/26/17 14:15 White Blood Count 11.5 TH/MM3 Red Blood Count 4.38 MIL/MM3 Hemoglobin 13.3 GM/DL Hematocrit 38.3 % Mean Corpuscular Volume 87.3 FL Mean Corpuscular Hemoglobin 30.4 PG Mean Corpuscular Hemoglobin Concent 34.8 % Red Cell Distribution Width 14.1 % Platelet Count 398 TH/MM3 Mean Platelet Volume 7.4 FL Neutrophils (%) (Auto) 65.9 % Lymphocytes (%) (Auto) 23.2 % Monocytes (%) (Auto) 7.8 % Eosinophils (%) (Auto) 2.3 % Basophils (%) (Auto) 0.8 % Neutrophils # (Auto) 7.6 TH/MM3 Lymphocytes # (Auto) 2.7 TH/MM3 Monocytes # (Auto) 0.9 TH/MM3 Eosinophils # (Auto) 0.3 TH/MM3 Basophils # (Auto) 0.1 TH/MM3 CBC Comment DIFF FINAL Differential Comment Blood Urea Nitrogen 10 MG/DL Creatinine 0.74 MG/DL Random Glucose 84 MG/DL Calcium Level 9.0 MG/DL Sodium Level 134 MEQ/L Potassium Level 4.0 MEQ/L Chloride Level 100 MEQ/L Carbon Dioxide Level 25.0 MEQ/L Anion Gap 9 MEQ/L Estimat Glomerular Filtration Rate 109 ML/MIN MDM Medical Decision Making Medical Screen Exam Complete: Yes Emergency Medical Condition: Yes Medical Record Reviewed: Yes Differential Diagnosis Abscess versus lymphangitis versus tenosynovitis versus cellulitis Narrative Course Patient is able to flex and extend at the second digit dorsal aspect on the right however not fully due to pain... The edema is not fusiform and the patient does not have any tenderness to passive extension, patient does not show evidence of kanavels signs at this point.... Patient will be given IV antibiotics and referred to hand surgeon Dr. Pierce for outpatient evaluation and clinic Diagnosis Primary Impression: left wrist cellulitis Additional Impression: right index dorsum cellulitis with early lymphangitis Referrals: Maricarmen Pierce MD for further care and evaluation of your infected right index finger Patient Instructions: Cellulitis (ED), General Instructions, Lymphangitis (ED) Scripts Hydrocodone-Acetaminophen ([place]) 10-325 Mg Tab 1 TAB PO Q6H Y for PAIN, #14 TAB 0 Refills Prov: Cy Cooley MD 10/26/17 Ciprofloxacin (Cipro) 500 Mg Tab 500 MG PO BID for Infection for 10 Days, #20 TAB 0 Refills Prov: Cy Cooley MD 10/26/17 Sulfamethoxazole-Trimethoprim (Bactrim DS) 800-160 Mg Tab 1 TAB PO BID for Infection, #20 TAB 0 Refills Prov: Cy Cooley MD 10/26/17 Disposition: 01 DISCHARGE HOME Condition: Stable Cy Cooley MD Oct 26, 2017 17:16
[2017-10-26 17:20] LABS: AUTOMATED NEUTROPHIL # 7.6 TH/MM3 (1.8-7.7); BASOPHIL # 0.1 TH/MM3 (0-0.2); BASOPHIL % 0.8 % (0.0-2.0); EOSINOPHIL # 0.3 TH/MM3 (0-0.4); EOSINOPHIL % 2.3 % (0.0-4.0); HEMATOCRIT 38.3 % (39.0-51.0); HEMOGLOBIN 13.3 GM/DL (13.0-17.0); LYMPH % 23.2 % (9.0-44.0); LYMPHOCYTE # 2.7 TH/MM3 (1.0-4.8); MEAN CELL VOLUME 87.3 FL (80.0-100.0); MEAN CORPUSCULAR HEMOGLOBIN 30.4 PG (27.0-34.0); MEAN CORPUSCULAR HGB CONC 34.8 % (32.0-36.0); MEAN PLATELET VOLUME 7.4 FL (7.0-11.0); MONO % 7.8 % (0.0-8.0); MONOCYTE # 0.9 TH/MM3 (0-0.9); NEUT % 65.9 % (16.0-70.0); PLATELET COUNT 398 TH/MM3 (150-450); RED BLOOD COUNT 4.38 MIL/MM3 (4.50-5.90); RED CELL DISTRIBUTION WIDTH 14.1 % (11.6-17.2); WHITE BLOOD COUNT 11.5 TH/MM3 (4.0-11.0)
[2017-10-26 17:30] LABS: CREATININE 0.74 MG/DL (0.60-1.30)
[2017-10-26] MEDS ORDERED: HYDR-3366 PO (18:08)
[2017-10-26] MEDS ORDERED: CIPR-9 PO (18:08)
[2017-10-26] MEDS ORDERED: BACT800T5 PO (18:08)
[2017-10-26 18:58] VITALS: BP 99/66; PULSE 73; RESP 18; O2SAT 100
== END 2017-10-26 19:16 | disposition home or self-care (01) ==
LOC: NEPC 15:09
DX: I89.1 Lymphangitis (principal); Z72.0 Tobacco use
CPT/HCPCS: 73140; 80048; 85025; 87040; 96365; 96375; 99284; J1956